=== PATIENT | male | born 1965 | race Caucasian/White ===

== ENCOUNTER 2018-05-02 07:45 | Outpatient (REF) | payer OTHER, SELFPAY ==
[2018-05-02 13:39] LABS: ALT 28 U/L (12-78); AST 15 U/L (15-37); Albumin 3.9 g/dL (3.4-5.0); Alkaline Phosphatase 45 U/L (46-116); Anion Gap 11.3 mmol/L (3-11); BUN 16 mg/dL (7-18); Bilirubin, Total 0.6 mg/dL (0.2-1.0); CO2 24.7 mmol/L (21.0-32.0); CREATININE 1.06 mg/dL (0.70-1.30); Chloride 106 mmol/L (98-107); Cholesterol 196 mg/dL (50-200); Glucose 105 mg/dL (70-100); HDL Cholesterol 44 mg/dL (40-60); LDL CHOLESTEROL 141 mg/dL (<100); Potassium 4.3 mmol/L (3.5-5.1); Sodium 142 mmol/L (136-145); Total Protein 7.2 g/dL (6.4-8.2); Triglyceride 88 mg/dL (30-150)
== END 2018-05-02 08:05 ==
LOC: NCHCN 07:45
PROVIDERS: PCP Family Medicine; Visit Provider Family Medicine
DX: Z00.00 Encounter for general adult medical examination without abnormal findings (principal); Z13.220 Encounter for screening for lipoid disorders; Z13.228 Encounter for screening for other metabolic disorders
CPT/HCPCS: 80053; 80061; 83721

== ENCOUNTER 2020-12-16 07:15 | Emergency (ER) | payer OTHER, SELFPAY ==
[2020-12-16 07:29] VITALS: BP 149/83; PULSE 66; TEMP 36.5; O2SAT 99
--- NOTE | 2020-12-16 07:45 | DI.RAD_ITS ---
Exam(s) XR ANKLE RT COMPLETE EXAM: XR ANKLE RT COMPLETE CLINICAL HISTORY: s/p twisting injury, r/o fx. TECHNIQUE: 2D digital imaging was performed. COMPARISON: No exams were available for comparison FINDINGS: There is no evidence of acute fracture nor widening of the mortise. Talar dome appears unremarkable. Accessory ossicle is noted subjacent to the lateral malleolus. Talar dome appears unremarkable. O n the lateral view there is a small 2 millimeter calcifications seen in the anterior ankle joint spac e. Probably loose intra-articular body. Subtalar joint appears unremarkable. Tiny inferior calcane al spur. Also enthesophyte at posterior insertion of the Achilles tendon. IMPRESSION: No obvious fractures. 2 millimeter anteriorly located loose body in the ankle-tibiotalar joint. No obvious degenerative changes nor osteochondral defects evident DATA REPOSITORY: RADIATION DOSE DELIVERED:
--- NOTE | 2020-12-16 07:45 | ED.GENADUL_ITS ---
Discharge Plan Disposition Patient Disposition: HOME Condition: Stable Discharge Details Clinical Impression: Right knee sprain, Effusion of right knee, Right ankle sprain Primary Care Provider: Shawn Yun ED Provider: Geri Freeman Home Meds and New Rx's Prescriptions: Continued Centrum Complete 1 EACH tablet 1 ea PO DAILY RF: 0 atorvastatin 20 mg tablet 20 mg PO DAILY RF: 0 losartan 100 mg tablet 100 mg PO DAILY RF: 0 Discharge Instructions Instructions: Ankle Sprain (ED), Knee Sprain (ED) Additional Instructions: Rest, ice, and elevate the affected area as much as possible. Alternate tylenol and motrin as needed and directed for pain. Follow-up with your primary care doctor in 1 week and for referral to orthopedics if your symptoms do not improve or worsen. Return to the emergency department with any worsening or new concerning symptoms. Stand Alone Forms: Work Release Referrals: Ronald White MD [ [facility] STAFF PHYSICIAN] - Discharge Data Discharge Physician: Geri Freeman Medical Decision Making 55-year-old male presents with right knee and ankle pain after twisting injuries while working with his toenails at home yesterday. Increased pain with walking and weightbearing. Right lateral knee minimally tender to palpation with minimal pain with range of motion but no obvious ligamentous laxity, deformity or evidence of trauma. There is no surrounding erythema or edema. His right medial malleolus is tender and pain is reproducible with range of motion but there is no evidence of trauma, cellulitis or deformity. He is neurovascularly intact. Suspect most likely knee and ankle strain or sprain. Will obtain x-rays and give a dose of ibuprofen. Right knee x-ray notes joint effusion. Right ankle x-ray negative for acute findings. Will place an Nicolás wrap to the right knee and ankle and give crutches. Patient given orthopedic follow-up information if needed. Instructed on importance of RICE. Usual and customary return precautions given prior to discharge. Medical Records Medical records reviewed: Yes I reviewed the patient's medical records. Imaging Data Radiologic Study: Radiologist's impression: XR KNEE RT 3V AP,LAT,MCKAYLA CLINICAL HISTORY: s/p twisting injury, r/o fx. TECHNIQUE: 2D digital imaging was performed. COMPARISON: No exams were available for comparison FINDINGS: There is no evidence of acute fracture although there does appear to be a joint effusion which may signify an internal derangement. No degenerative narrowing. Calcification is noted in the proximal-superior aspect of the patellar ligament. No joint space narrowing. IMPRESSION: No obvious fractures but there does appear to be a joint effusion and therefore possibly an internal derangement. Appropriate follow-up recommended. XR ANKLE RT COMPLETE CLINICAL HISTORY: s/p twisting injury, r/o fx. TECHNIQUE: 2D digital imaging was performed. COMPARISON: No exams were available for comparison FINDINGS: There is no evidence of acute fracture nor widening of the mortise. Talar dome appears unremarkable. Accessory ossicle is noted subjacent to the lateral malleolus. Talar dome appears unremarkable. On the lateral view there is a small 2 millimeter calcifications seen in the anterior ankle joint space. Probably loose intra-articular body. Subtalar joint appears unremarkable. Tiny inferior calcaneal spur. Also enthesophyte at posterior insertion of the Achilles tendon. IMPRESSION: No obvious fractures. 2 millimeter anteriorly located loose body in the ankle- tibiotalar joint. No obvious degenerative changes nor osteochondral defects evident HPI General Mode of arrival: ambulatory . Date/Time Provider Initiated Documentation: 12/16/20 07:44 . Limitations to Documentation: no limitations . Information obtained by: patient . HPI Narrative: Patient is a 55-year-old male who presents to the ED with complaint of right knee and ankle pain after twisting his knee while working with his ponies yesterday. Patient states he had a root that he was using with the Flonase and this got twisted around and told on his right knee. Patient did not initially endorse ankle pain, but upon assessment, states he feels he may have twisted his right ankle as well. He denies any hip pain. He last took ibuprofen at 1 AM this morning. He states he has increased pain with weightbearing and walking. Related Data Home Medications Medication Instructions Recorded Confirmed Centrum Complete 1 ea PO DAILY 03/09/13 12/16/20 atorvastatin 20 mg PO DAILY 12/16/20 12/16/20 losartan 100 mg PO DAILY 12/16/20 12/16/20 Allergies Allergy/AdvReac Type Severity Reaction Status Date / Time No Known Allergies Allergy Unverified 01/15/17 09:31 General Stated Complaint: Orthopedic ELIF: 4 Review of Systems All systems reviewed & are unremarkable except as noted in HPI and below [facility] Medical History (Updated 12/16/20 @ 09:26 by Geri Freeman DO) Hypertension Kidney stones Surgical History (Updated 12/16/20 @ 08:15 by Geri Freeman DO) Kidney stones ultrasonic Social History Smoking/Tobacco Use Status: Former Tobacco Use Smoking risk assessment performed?: Yes Alcohol Intake: current Alcohol Intake frequency: a few times a month Alcohol type: beer Drug use: Never Substance use type: does not use Do you feel safe at home: Yes Do you feel safe in your relationship?: Yes Exam Const General: cooperative, healthy appearing and no acute distress HENMT Head: normal to inspection Mouth: oral mucosae normal Eyes General: appearance normal, both eyes and all related structures Neck Neck: normal visual inspection Resp Effort & Inspection: normal respiratory effort and able to speak in complete sentences Cardio Rate: regular rate Skin General skin exam: no rashes or lesions noted Neuro General: patient alert, patient awake and patient oriented x3 Motor: muscle tone normal throughout Extrem Other: Tenderness to palpation to right lateral knee with reproducible pain with range of motion. There is no significant pain or laxity with valgus or varus stress. Negative anterior posterior drawer test. Some pain noted with Tracie's on lateral aspect but no clicking sensation. He also has tenderness to palpation and pain with range of motion at the right medial malleolus but there is no evidence of trauma, deformity. Right fifth metatarsal nontender. No right calf tenderness. Right DP/PT pulses intact. No pain with range of motion at right hip. Psych Appearance: grossly normal Affect: normal affect Course Vital Signs Vital signs: Vital Signs Temperature 97.7 F 12/16/20 07:29 Pulse 66 12/16/20 07:29 Blood Pressure 149/83 H 12/16/20 07:29 Pulse Oximetry 99 12/16/20 07:29 Temperature 97.7 F 12/16/20 07:29 Temperature Source Temporal Artery Scan 12/16/20 07:29 Pulse 66 12/16/20 07:29 Blood Pressure 149/83 H 12/16/20 07:29 Blood Pressure Position Sitting 12/16/20 07:29 Pulse Oximetry 99 12/16/20 07:29 Oxygen Delivery Method Room Air 12/16/20 07:29 Oxygen Flow Rate 0 12/16/20 07:29 Pain Level 5 12/16/20 07:29
--- NOTE | 2020-12-16 07:45 | DI.RAD_ITS ---
Exam(s) XR KNEE RT 3V AP,LAT,MCKAYLA EXAM: XR KNEE RT 3V AP,LAT,MCKAYLA CLINICAL HISTORY: s/p twisting injury, r/o fx. TECHNIQUE: 2D digital imaging was performed. COMPARISON: No exams were available for comparison FINDINGS: There is no evidence of acute fracture although there does appear to be a joint effusion which may si gnify an internal derangement. No degenerative narrowing. Calcification is noted in the proximal-de la cruz perior aspect of the patellar ligament. No joint space narrowing. IMPRESSION: No obvious fractures but there does appear to be a joint effusion and therefore possibly an internal derangement. Appropriate follow-up recommended. DATA REPOSITORY: RADIATION DOSE DELIVERED:
[2020-12-16] MEDS: Ibuprofen 600 MG TAB PO (08:28)
== END 2020-12-16 12:35 | disposition home or self-care (01) ==
PROVIDERS: Emergency Provider Physician Assistant; PCP Family Medicine
DX: S83.8X1A Sprain of other specified parts of right knee, initial encounter (principal); M25.461 Effusion, right knee; S93.491A Sprain of other ligament of right ankle, initial encounter; X50.9XXA Other and unspecified overexertion or strenuous movements or postures, initial encounter
CPT/HCPCS: 73562; 99284; 73610

== ENCOUNTER 2021-02-07 20:17 | Outpatient (REF) | payer OTHER, SELFPAY ==
[2021-02-07 21:27] LABS: Hemoglobin A1C 5.6 % (<5.7)
[2021-02-07 21:43] LABS: Anion Gap 10.9 mmol/L (3-11); BUN 27 mg/dL (7-18); CO2 24.1 mmol/L (21.0-32.0); Calcium 9.2 mg/dL (8.5-10.1); Calculated LDL 123 mg/dL (<100); Chloride 106 mmol/L (98-107); Cholesterol 187 mg/dL (<200); Glucose 91 mg/dL (74-106); HDL Cholesterol 38 mg/dL (40-60); Potassium 4.3 mmol/L (3.5-5.1); Sodium 141 mmol/L (136-145); Triglyceride 131 mg/dL (<150)
== END 2021-02-07 20:18 | disposition home or self-care (01) ==
LOC: NCHCN 20:17
PROVIDERS: PCP Family Medicine; Visit Provider Family Medicine
DX: Z00.00 Encounter for general adult medical examination without abnormal findings (principal); I10 Essential (primary) hypertension; E78.5 Hyperlipidemia, unspecified
CPT/HCPCS: 80048; 80061; 83036

== ENCOUNTER 2022-01-26 16:53 | Outpatient (REF) | payer OTHER, SELFPAY ==
[2022-01-26 15:42] LABS: BUN 25 mg/dL (7-18); CREATININE 1.1 mg/dL (0.70-1.30); Calcium 8.6 mg/dL (8.5-10.1); Calculated LDL 121 mg/dL (<100); Chloride 109 mmol/L (98-107); Cholesterol 185 mg/dL (<200); Glucose 114 mg/dL (74-106); HDL Cholesterol 39 mg/dL (40-60); Potassium 4.1 mmol/L (3.5-5.1); Sodium 142 mmol/L (136-145); Triglyceride 128 mg/dL (<150)
== END 2022-01-26 16:54 | disposition home or self-care (01) ==
LOC: NCHCN 16:53
PROVIDERS: PCP Family Medicine; Visit Provider Family Medicine
DX: Z00.00 Encounter for general adult medical examination without abnormal findings (principal); I10 Essential (primary) hypertension; E78.5 Hyperlipidemia, unspecified
CPT/HCPCS: 80048; 80061

== ENCOUNTER 2022-12-04 09:35 | Outpatient (REF) | payer OTHER, SELFPAY ==
[2022-12-04 17:42] LABS: Anion Gap 8.1 mmol/L (3-11); BUN 18 mg/dL (7-18); CO2 25.9 mmol/L (21.0-32.0); CREATININE 1.1 mg/dL (0.70-1.30); Calcium 8.9 mg/dL (8.5-10.1); Calculated LDL 67 mg/dL (<100); Chloride 106 mmol/L (98-107); Cholesterol 129 mg/dL (<200); Estimated GFR 77.81 (mL/min/1.73m2); Glucose 108 mg/dL (74-106); HDL Cholesterol 40 mg/dL (40-60); Potassium 4.3 mmol/L (3.5-5.1); Sodium 140 mmol/L (136-145); Triglyceride 110 mg/dL (<150)
== END 2022-12-04 09:36 | disposition home or self-care (01) ==
LOC: NCHCN 09:35
PROVIDERS: PCP Family Medicine; Visit Provider Family Medicine
DX: Z00.00 Encounter for general adult medical examination without abnormal findings (principal); I10 Essential (primary) hypertension; E78.5 Hyperlipidemia, unspecified
CPT/HCPCS: 80048; 80061

== ENCOUNTER 2024-02-16 21:50 | Outpatient (REF) | payer OTHER, SELFPAY ==
[2024-02-16 19:53] LABS: Magnesium 2.1 mg/dL (1.8-2.4)
== END 2024-02-16 21:51 | disposition home or self-care (01) ==
LOC: NCHCN 21:50
PROVIDERS: PCP Family Medicine; Visit Provider Student in an Organized Health Care Education/Training Program
DX: I10 Essential (primary) hypertension (principal)
CPT/HCPCS: 83735

== ENCOUNTER 2025-06-18 16:29 | Outpatient (REF) | payer OTHER, SELFPAY ==
[2025-06-18 17:25] LABS: Abs Immature Grans 0.02 10^3/uL (0.0-0.06); HCT 43.6 % (40.0-50.0); HGB 14.8 g/dL (13.5-17.5); Immature Grans % 0.3 %; MCH 28.4 pg (27.0-33.0); MCHC 33.9 % (32.0-36.0); MCV 84 fL (80-95); MPV 10.6 fL (8.0-11.0); Platelet Count 225 10^3/uL (130-400); RBC 5.21 10^6/uL (4.36-5.78); RDW 11.9 % (11.8-14.1); RDW-SD 36.0 fL; WBC 7.29 10^3/uL (4.4-10.8)
[2025-06-18 17:44] LABS: Hemoglobin A1C 5.5 % (<5.7)
[2025-06-18 17:47] LABS: Anion Gap 11.2 mmol/L (3-11); BUN 20 mg/dL (9-23); CO2 25.8 mmol/L (20.0-31.0); Calcium 9.3 mg/dL (8.3-10.6); Chloride 107 mmol/L (98-107); Cholesterol 170 mg/dL (<200); Glucose 92 mg/dL (74-106); HDL Cholesterol 40 mg/dL (>or=40); Potassium 3.9 mmol/L (3.5-5.1); Sodium 144 mmol/L (136-145)
[2025-06-18 17:52] LABS: Microalb ug/mg Crea 7.0 ug/mg Cr
== END 2025-06-18 16:30 | disposition home or self-care (01) ==
LOC: NCHCN 16:29
PROVIDERS: PCP Student in an Organized Health Care Education/Training Program; Visit Provider Student in an Organized Health Care Education/Training Program
DX: I10 Essential (primary) hypertension (principal); Z13.1 Encounter for screening for diabetes mellitus; E78.5 Hyperlipidemia, unspecified
CPT/HCPCS: 80048; 80061; 82043; 82570; 83036; 85025